=== PATIENT | female | born 1985 | race Caucasian/White ===

== ENCOUNTER 2016-03-28 14:47 | Emergency (ER) | payer OTHER ==
[2016-03-28 14:54] VITALS: BP 105/69; PULSE 60; TEMP 97.9; BMI 27.4
== END 2016-03-28 18:22 | disposition left against medical advice (07) ==
LOC: JER 14:47
DX: Z53.21 Procedure and treatment not carried out due to patient leaving prior to being seen by health care provider (principal)
CPT/HCPCS: 99281-25

== ENCOUNTER 2016-10-21 10:01 | Inpatient (IN) | payer OTHER ==
[2016-10-21] MEDS ORDERED: ELECTROLYTE-148 SOLN 500 ML IV ONE (11:00)
[2016-10-21] MEDS ORDERED: CITRIC ACID/SODIUM CITRATE 30 ML UNIT-DOSE CUP PO ONE (11:00)
[2016-10-21] MEDS ORDERED: ELECTROLYTE-148 SOLN 1,000 ML IV SCH ×2 (11:30→14:00)
[2016-10-21 11:50] LABS: BASOPHIL 0.1 % (0-2.0); EOSINOPHIL 0.6 % (0-4.5); MCH 29.4 pg (25.7-33.7); MCHC 33.7 g/dl (32.0-36.0); MEAN CELL VOLUME 87.3 fl (80-96); MEAN PLT VOLUME 9.6 fl (7.5-11.1); NEUTROPHILS 78.2 % (42.8-82.8); PLATELET COUNT 160 K/MM3 (134-434); RDW 14.4 % (11.6-15.6); WHITE BLOOD COUNT 8.5 K/mm3 (4.0-10.0)
[2016-10-21 11:53] VITALS: BMI 35.4
[2016-10-21 12:04] LABS: INR 1.04 (0.82-1.09); PROTHROMBIN TIME (PATIENT) 11.5 SEC (9.98-11.88)
[2016-10-21 12:07] LABS: ACTIVATED PTT 29.9 SECONDS (26.9-34.4)
[2016-10-21 12:25] LABS: ANION GAP 10 (8-16); CALCIUM 8.3 mg/dL (8.5-10.1); CO2 22 mmol/L (21-32); CREATININE 0.6 mg/dL (0.55-1.02); GLUCOSE,RANDOM 101 mg/dL (74-106)
[2016-10-21 13:39] LABS: HIV 1 & 2 AB NEGATIVE; HIV 1 AGp24 NEGATIVE
--- NOTE | 2016-10-21 14:04 | HP ---
Past Medical History - Admission Chief Complaint: Rupture of membrane History of Present Illness: 31 yo @ 38 weeks gestation, admitted due to rupture of membrane. She had 3 previous C-Sections. She's on Methadone. She admits to eating regular diet at 11 am. Decision made to have repeat 8hrs postprandial. History Source: Patient Limitations to Obtaining History: No Limitations - Past Medical History ...: 5 ...Para: 3 ...Term: 3 ...: 0 ...Spon : 1 ...Induced : 0 ...Multiple Gestation: 0 ...EDC by Abhi: 11/03/16 - Past Surgical History Past Surgical History: Yes: Hx Myomectomy: No Hx Transabdominal Cerclage: No - Smoking History Smoking history: Never smoked Have you smoked in the past 12 months: No Aproximately how many cigarettes per day: 2 - Alcohol/Substance Use Hx Alcohol Use: No History of Substance Use: reports: Heroin - Social History Usual Living Arrangement: Yes: With Spouse History of Recent Travel: No Home Medications - Allergies Allergies/Adverse Reactions: Allergies Allergy/AdvReac Type Severity Reaction Status Date / Time Penicillins Allergy Severe Difficulty Verified 10/21/16 13:56 Breathing - Home Medications Home Medications: Ambulatory Orders Methadone 170 mg PO DAILY 09/04/16 Vit/Iron Fumarate/FA [ Tablet] 1 tab PO DAILY #30 tab 09/04/16 Ferrous Sulfate 1 tab PO BID 10/21/16 Family Disease History - Family Disease History Family History: Unremarkable Review of Systems - Review of Systems Constitutional: reports: No Symptoms Eyes: reports: No Symptoms HENT: reports: No Symptoms Neck: reports: No Symptoms Cardiovascular: reports: No Symptoms Respiratory: reports: No Symptoms Gastrointestinal: reports: No Symptoms Genitourinary: reports: Other (Leakage of fluid) Breasts: reports: No Symptoms Reported Musculoskeletal: reports: No Symptoms Integumentary: reports: No Symptoms Neurological: reports: No Symptoms Endocrine: reports: No Symptoms Hematology/Lymphatic: reports: No Symptoms Psychiatric: reports: No Symptoms Pain Intensity: 2 Physical Exam - Maternity Vital Signs: Vital Signs Temperature 98.3 F 10/21/16 11:00 Pulse Rate 66 10/21/16 11:00 Respiratory Rate 20 10/21/16 11:00 Blood Pressure 137/75 10/21/16 11:00 O2 Sat by Pulse Oximetry (%) Constitutional: Yes: Well Nourished Eyes: Yes: Conjunctiva Clear HENT: Yes: Atraumatic Neck: Yes: Supple Cardiovascular: Yes: Regular Rate and Rhythm Lungs: Clear to auscultation - Abdominal Exam/OB Number of Fetuses: Single Presentation: Vertex Contractions: No Intensity: Unaware - Vaginal Exam/OB Effacement (%): 70 Amniotic Membrane Status: Leaking Nitrazine Test: Positive Amniotic Fluid: Yes: Clear Presentation: Vertex/Position Station: -2 - Physical Exam Integumentary: Yes: WNL ...Motor Strength: WNL Psychiatric: Yes: Alert, Oriented - Labs Lab Results: CBC, BMP 10/21/16 11:30 10/21/16 11:30 Problem List - Problems (1) SROM (spontaneous rupture of membranes) Code(s): KFO8748 - Assessment/Plan Spontaneous rupture of membrane IUP @ 38 weeks with previous Pre op for repeat Prep and shave Anesthesia to see patient
[2016-10-21] MEDS ORDERED: oxyCODONE HCL 5 MG TABLET PO PRN (22:43)
[2016-10-21] MEDS ORDERED: METHYLERGONOVINE MALEATE 0.2 MG/1 ML AMP IM PRN (22:43)
[2016-10-21] MEDS ORDERED: IBUPROFEN 800 MG/8 ML IJ IVPB PRN (22:43)
[2016-10-21] MEDS ORDERED: ONDANSETRON 4 MG/2 ML VIAL IVPB PRN (23:48)
[2016-10-22] MEDS ORDERED: ACETAMINOPHEN 1000 MG/100 ML VIAL (NON FORMULARY) IVPB ONE (01:14)
[2016-10-22] MEDS ORDERED: HYDROmorphone *PCA* 10MG/50ML DISP.SYRIN PCA SCH (01:15)
[2016-10-22 03:02] LABS: URINE MARIJUANA THC NEGATIVE ng/ml (CUTOFF=50)
[2016-10-22] MEDS ORDERED: METHADONE HCL 5 MG TABLET PO SCH (06:00)
--- NOTE | 2016-10-22 06:16 | PN ---
Post Progress Note Type of Delivery: Repeat C/S Vital Signs: Vital Signs Temperature 97.9 F 10/22/16 06:00 Pulse Rate 73 10/22/16 06:00 Respiratory Rate 17 10/22/16 06:00 Blood Pressure 120/71 10/22/16 06:00 O2 Sat by Pulse Oximetry (%) 100 10/22/16 00:45 Breast Exam: Yes: Soft Uterus: Yes: Fundus Firm Incision: Yes: Dressing dry and intact Abdomen/GI: Yes: Abdomen soft Lochia: Yes: Rubra Lochia, amount: Small Extremities: Yes: Calves non-tender Perineum: Yes: Intact Activity: Ambulating - Labs Labs: CBC WBC 8.5 K/mm3 (4.0-10.0) 10/21/16 11:30 RBC 3.76 M/mm3 (3.60-5.2) 10/21/16 11:30 Hgb 11.0 GM/dL (10.7-15.3) 10/21/16 11:30 Hct 32.8 % (32.4-45.2) 10/21/16 11:30 MCV 87.3 fl (80-96) 10/21/16 11:30 MCH 29.4 pg (25.7-33.7) 10/21/16 11:30 MCHC 33.7 g/dl (32.0-36.0) 10/21/16 11:30 RDW 14.4 % (11.6-15.6) 10/21/16 11:30 Plt Count 160 K/MM3 (134-434) 10/21/16 11:30 MPV 9.6 fl (7.5-11.1) 10/21/16 11:30 Neutrophils % 78.2 % (42.8-82.8) 10/21/16 11:30 Lymphocytes % 14.1 % (8-40) 10/21/16 11:30 Monocytes % 7.0 % (3.8-10.2) 10/21/16 11:30 Eosinophils % 0.6 % (0-4.5) 10/21/16 11:30 Basophils % 0.1 % (0-2.0) 10/21/16 11:30 Assessment/Plan contine care oob reg diet oain control check labs
[2016-10-22] MEDS ORDERED: METHADONE 160 MG, METHADONE 15 MG PO SCH (08:00)
[2016-10-22] MEDS ORDERED: METHADONE HCL 5 MG TABLET ONE (08:01)
[2016-10-22] MEDS ORDERED: METHADONE HCL 40 MG DISPERSABLE TABLET ONE (08:02)
[2016-10-22] MEDS ORDERED: METHADONE 160 MG, METHADONE 10 MG PO SCH (08:09)
[2016-10-22] MEDS: METHADONE 160 MG, METHADONE 10 MG PO SCH (08:15)
--- NOTE | 2016-10-22 08:15 | PN ---
Progress Note (short form) - Note Progress Note: Post op day#1.S/P c section under spinal anesthesia with duramorph uneventful.Patient stable and c/o pain score of 5-6/10 on Dilaudid JOURNEYMAN WELDER.Patient has been om Marijuana 170mg po od for last 5 years and is seeking for it.So after discussing with pharmacist JOURNEYMAN WELDER is DC and will put patient on Dilaudid and NSAID PRN and also she will get Marijuana.No any anesthesia related problem.If needed will f/u.
--- NOTE | 2016-10-22 08:18 | PN ---
Progress Note (short form) - Note Progress Note: Post op day#1.S/P c section under spinal anesthesia with duramorph uneventful.Patient stable and c/o pain score of 5-6/10 on Dilaudid GOLDBEATER.Patient has been om Methadone 170mg po od for last 5 years and is seeking for it.So after discussing with pharmacist GOLDBEATER is DC and will put patient on Dilaudid and NSAID PRN and also she will get Methadone.No any anesthesia related problem.If needed will f/u.
[2016-10-22 08:24] LABS: BASOPHIL 0.4 % (0-2.0); EOSINOPHIL 0.8 % (0-4.5); MCH 29.5 pg (25.7-33.7); MCHC 33.8 g/dl (32.0-36.0); MEAN CELL VOLUME 87.2 fl (80-96); MEAN PLT VOLUME 9.5 fl (7.5-11.1); NEUTROPHILS 73.1 % (42.8-82.8); PLATELET COUNT 147 K/MM3 (134-434); RDW 13.9 % (11.6-15.6); WHITE BLOOD COUNT 8.5 K/mm3 (4.0-10.0)
[2016-10-22] MEDS ORDERED: HYDROmorphone HCL CARPU-JECT 1 MG/1 ML DISP.SYRIN IVPB PRN (08:29)
[2016-10-22] MEDS ORDERED: IBUPROFEN 800 MG/8 ML IJ IVPB PRN (08:29)
[2016-10-22] MEDS: OXYTOCIN 20 UNITS in 0.9% NS 1,000 ML IV SCH ×2 (08:45)
[2016-10-22] MEDS: oxyCODONE HCL 5 MG TABLET PO PRN (16:38)
[2016-10-22] MEDS: SIMETHICONE 80 MG TAB.CHEW (FP) PO PRN (16:39)
[2016-10-22] MEDS: IBUPROFEN 600 MG TABLET (FP) PO PRN (16:39)
--- NOTE | 2016-10-22 17:11 | OP ---
DATE OF OPERATION: DATE OF DICTATION: 10/22/2016 HISTORY OF PRESENT ILLNESS: A 31-year-old female with 3 prior sections presents to the hospital with spontaneous rupture of membranes. POSTOPERATIVE DIAGNOSIS: A 31-year-old female with 3 prior sections presents to the hospital with spontaneous rupture of membranes. PROCEDURE: Repeat section. OPERATING SURGEON: Lilliana Dominguez MD VACUUM DRIER TENDER: TITO Lopez ANESTHESIA: Dr. Joe, spinal anesthesia. COMPLICATIONS: Multiple adhesions. ESTIMATED BLOOD LOSS: 600 mL DISPOSITION: To recovery room in stable, alert condition. DESCRIPTION OF PROCEDURE: Patient was consented prior to entering the operating suite. Patient put on the table in dorsal supine position and prepped and draped in the usual sterile fashion. A low Pfannenstiel incision was carried down to the previous. This was then carried down to the fascia. There was noted to be areas of adhesions identified. Once down to the muscle, the fascia was then from the underlying rectus tissue. The rectus abdominis muscle was noted to be adherent and then was entered sharply. The gravid uterus then identified after separation of the muscles. A transverse incision was made on the lower segment. The bladder flap had been created. Gain into the uterine cavity was then seen. The uterine incision was then . The 's head was then delivered atraumatically through the incision. The cord was then clamped and cut. The infant was then handed off to the waiting sas programmer remote. The placenta had been removed. The uterus was then closed in a single layer of locking Biosyn suture. Adequate hemostasis was identified. At this time, the right and left paracolic gutters were seen. There was no identified. The muscle was then approximated with the underlying peritoneum. The fascia was then closed in a running nonlocking fashion. Area of imbrication was performed. The skin flora were applied. The patient was sent to recovery room in stable, alert condition. LILLIANA DOMINGUEZ M.D. RYANNE/[id number]
[2016-10-22] MEDS ORDERED: BISACODYL 10 MG SUPP.RECT RC PRN (22:44)
[2016-10-23] MEDS: IBUPROFEN 600 MG TABLET (FP) PO PRN ×3 (01:05→22:18)
[2016-10-23] MEDS: oxyCODONE HCL 5 MG TABLET PO PRN ×3 (01:05→22:18)
[2016-10-23] MEDS: SIMETHICONE 80 MG TAB.CHEW (FP) PO PRN ×3 (01:05→22:18)
[2016-10-23] MEDS ORDERED: METHADONE HCL 5 MG TABLET ONE (06:19)
[2016-10-23] MEDS ORDERED: METHADONE HCL 40 MG DISPERSABLE TABLET ONE (06:20)
[2016-10-23] MEDS: METHADONE 160 MG, METHADONE 10 MG PO SCH (06:27)
--- NOTE | 2016-10-23 09:59 | PN ---
Post Progress Note - Subjective Subjective: c/o pain at op site scale #7 Post Day: 2 Type of Delivery: Repeat C/S Vital Signs: Vital Signs Temperature 98.0 F 10/23/16 06:35 Pulse Rate 71 10/23/16 06:35 Respiratory Rate 20 10/23/16 06:35 Blood Pressure 133/83 10/23/16 06:35 O2 Sat by Pulse Oximetry (%) 100 10/22/16 00:45 Breast Exam: Yes: Soft, Other (BF ). No: Engorged Uterus: Yes: Fundus Firm, Fundus below umbilicus, Non-tender Incision: Yes: Dressing dry and intact (to be changed ). No: Redness, Oozing Abdomen/GI: Yes: Abdomen soft, Tender, Passing flatus, Tolerating PO (diet ). No: Abdominal Distention Lochia: Yes: Rubra Lochia, amount: Moderate Extremities: Yes: Calves non-tender Perineum: Yes: Intact Activity: Ambulating - Labs Labs: CBC WBC 8.5 K/mm3 (4.0-10.0) 10/22/16 07:50 RBC 3.25 M/mm3 (3.60-5.2) L 10/22/16 07:50 Hgb 9.6 GM/dL (10.7-15.3) L D 10/22/16 07:50 Hct 28.4 % (32.4-45.2) L 10/22/16 07:50 MCV 87.2 fl (80-96) 10/22/16 07:50 MCH 29.5 pg (25.7-33.7) 10/22/16 07:50 MCHC 33.8 g/dl (32.0-36.0) 10/22/16 07:50 RDW 13.9 % (11.6-15.6) 10/22/16 07:50 Plt Count 147 K/MM3 (134-434) 10/22/16 07:50 MPV 9.5 fl (7.5-11.1) 10/22/16 07:50 Neutrophils % 73.1 % (42.8-82.8) 10/22/16 07:50 Lymphocytes % 16.9 % (8-40) 10/22/16 07:50 Monocytes % 8.8 % (3.8-10.2) 10/22/16 07:50 Eosinophils % 0.8 % (0-4.5) 10/22/16 07:50 Basophils % 0.4 % (0-2.0) D 10/22/16 07:50 Assessment/Plan anemia, , on po Metthadone 160 +10 mg daily Plan encourage ambulation, po fluids
[2016-10-24] MEDS ORDERED: METHADONE HCL 5 MG TABLET ONE (06:29)
[2016-10-24] MEDS ORDERED: METHADONE HCL 40 MG DISPERSABLE TABLET ONE (06:30)
[2016-10-24] MEDS: METHADONE 160 MG, METHADONE 10 MG PO SCH (06:32)
--- NOTE | 2016-10-24 08:19 | PN ---
Post Progress Note - Subjective Subjective: 31 yo Para 4 status post , seen and evaluated. Doing well. She c/o itching over the belly but there's no rash. Post Day: 3 Type of Delivery: Repeat C/S Vital Signs: Vital Signs Temperature 98.7 F 10/23/16 20:20 Pulse Rate 61 10/23/16 20:20 Respiratory Rate 20 10/23/16 20:20 Blood Pressure 129/75 10/23/16 20:20 O2 Sat by Pulse Oximetry (%) 100 10/22/16 00:45 Breast Exam: Yes: Soft Uterus: Yes: Fundus Firm Incision: Yes: Negra intact Abdomen/GI: Yes: Abdomen soft, Tolerating PO Lochia: Yes: Rubra Lochia, amount: Small Extremities: Yes: Edema (+1) Perineum: Yes: Intact Activity: Ambulating - Labs Labs: CBC WBC 8.5 K/mm3 (4.0-10.0) 10/22/16 07:50 RBC 3.25 M/mm3 (3.60-5.2) L 10/22/16 07:50 Hgb 9.6 GM/dL (10.7-15.3) L D 10/22/16 07:50 Hct 28.4 % (32.4-45.2) L 10/22/16 07:50 MCV 87.2 fl (80-96) 10/22/16 07:50 MCH 29.5 pg (25.7-33.7) 10/22/16 07:50 MCHC 33.8 g/dl (32.0-36.0) 10/22/16 07:50 RDW 13.9 % (11.6-15.6) 10/22/16 07:50 Plt Count 147 K/MM3 (134-434) 10/22/16 07:50 MPV 9.5 fl (7.5-11.1) 10/22/16 07:50 Neutrophils % 73.1 % (42.8-82.8) 10/22/16 07:50 Lymphocytes % 16.9 % (8-40) 10/22/16 07:50 Monocytes % 8.8 % (3.8-10.2) 10/22/16 07:50 Eosinophils % 0.8 % (0-4.5) 10/22/16 07:50 Basophils % 0.4 % (0-2.0) D 10/22/16 07:50 Problem List - Problems (1) SROM (spontaneous rupture of membranes) Code(s): TTO0936 - (2) Status post repeat low transverse section Code(s): Z98.891 - HISTORY OF UTERINE SCAR FROM PREVIOUS SURGERY Assessment/Plan Status post repeat Body itch Betamethasone cream Continue ambulation Consider D/C home in am
[2016-10-24 08:57] LABS: BASOPHIL 0.4 % (0-2.0); EOSINOPHIL 1.4 % (0-4.5); MCH 29.7 pg (25.7-33.7); MCHC 33.5 g/dl (32.0-36.0); MEAN CELL VOLUME 88.7 fl (80-96); MEAN PLT VOLUME 9.7 fl (7.5-11.1); NEUTROPHILS 70.4 % (42.8-82.8); PLATELET COUNT 205 K/MM3 (134-434); RDW 14.3 % (11.6-15.6); WHITE BLOOD COUNT 7.8 K/mm3 (4.0-10.0)
[2016-10-24] MEDS: ACETAMINOPHEN 325 MG TABLET (FP) PO PRN (12:35)
[2016-10-24] MEDS: oxyCODONE HCL 5 MG TABLET PO PRN ×2 (12:35→20:03)
[2016-10-24] MEDS: IBUPROFEN 600 MG TABLET (FP) PO PRN ×2 (12:35→20:04)
[2016-10-24] MEDS: SIMETHICONE 80 MG TAB.CHEW (FP) PO PRN ×2 (12:35→20:03)
[2016-10-24] MEDS: BETAMETHASONE DIP 0.05% TP LOTION 60 ML BOTTLE TP SCH ×2 (12:36→22:27)
--- NOTE | 2016-10-24 14:32 | PATH ---
Surgical Pathology Report Patient Name: ALVARO GODWIN Med. Rec. #: [id number] /Age/Gender: 1985 (Age: 31) / F Account: [id number] Location: [facility] OBS/HEAD OF VISUAL MERCHANDISING Taken: 10/21/2016 Received: 10/22/2016 Reported: 10/24/2016 Physicians: Sohan Dominguez M.D. Demetra Saucedo M.D. Specimen(s) Received PLACENTA Clinical History , 38.1 weeks previous c/section; SPAB x1, rheumatoid arthritis, possible uterine fibroid; history of heroin use-on methadone daily, grand multiparity; x3 12/13, 06/16, 05/17 Repeat c/section Final Diagnosis PLACENTA, DELIVERY: FOCALLY DISRUPTED THIRD TRIMESTER PLACENTA WITH MODERATE PREVILLOUS, PERIVILLOUS, AND PRECHORIONIC FIBRIN DEPOSITION, THREE VESSEL UMBILICAL CORD, AND PLACENTAL MEMBRANES WITH FOCAL AMNION HYPERPLASIA. Electronically Signed Ray Watt M.D. Gross Description The specimen is received fresh, labeled "placenta" and is a 564 gram, 18.0 x 16.5 x 2.5 cm. placenta with attached membranes and umbilical cord. The attached membranes are ruiz, translucent with focal opacities and insert marginally. The umbilical cord measures 26 cm in length and averages 0.9 cm in diameter. The cord inserts eccentrically, 4 cm to the nearest margin. No true knots or strictures are identified. Cut surface of the umbilical cord reveals 3 vessels. The surface is mojica-blue with fibrin deposition and appropriate caliber vessels. The maternal surface is red-brown with focal defects. Sectioning reveals red-brown, spongy parenchyma. No focal lesions are identified. Packer sections are submitted in three cassettes as follows: 1- membrane rolls and umbilical cord; 2-3- full thickness sections of placenta. 10/23/201610/23/2016
[2016-10-25] MEDS: IBUPROFEN 600 MG TABLET (FP) PO PRN ×2 (02:51→06:56)
[2016-10-25] MEDS: SIMETHICONE 80 MG TAB.CHEW (FP) PO PRN (02:51)
[2016-10-25] MEDS: oxyCODONE HCL 5 MG TABLET PO PRN ×2 (02:52→06:55)
[2016-10-25] MEDS ORDERED: METHADONE HCL 5 MG TABLET ONE (05:09)
[2016-10-25] MEDS ORDERED: METHADONE HCL 40 MG DISPERSABLE TABLET ONE (05:10)
[2016-10-25] MEDS: METHADONE 160 MG, METHADONE 10 MG PO SCH (05:12)
[2016-10-25] MEDS: ACETAMINOPHEN 325 MG TABLET (FP) PO PRN (06:56)
[2016-10-25] MEDS: BETAMETHASONE DIP 0.05% TP LOTION 60 ML BOTTLE TP SCH (10:12)
[2016-10-25 11:27] VITALS: BP 127/70; PULSE 66; TEMP 98.3
--- NOTE | 2016-10-25 12:43 | DS ---
Physical Exam-ACCOUNT MANAGER B2B Vital Signs: Vital Signs Temperature 98.3 F 10/25/16 10:00 Pulse Rate 66 10/25/16 10:00 Respiratory Rate 20 10/25/16 10:00 Blood Pressure 127/70 10/25/16 10:00 O2 Sat by Pulse Oximetry (%) 100 10/22/16 00:45 Constitutional: Yes: Well Nourished, No Distress, Calm Eyes: Yes: WNL, Conjunctiva Clear, EOM Intact HENT: Yes: WNL, Atraumatic, Normocephalic Neck: Yes: WNL, Supple, Trachea Midline Cardiovascular: Yes: WNL, Regular Rate and Rhythm Respiratory: Yes: WNL, Regular, CTA Bilaterally Gastrointestinal: Yes: WNL ...Rectal Exam: Yes: WNL Renal/: Yes: WNL ....Post : Yes: Uterus firm, Uterus non-tender, Slight lochia rubra Breast(s): Yes: WNL Musculoskeletal: Yes: WNL Extremities: Yes: WNL Integumentary: Yes: WNL Wound/Incision: Yes: Clean/Dry, Well Approximated, Sutures Intact Neurological: Yes: WNL, Alert, Oriented ...Motor Strength: WNL Psychiatric: Yes: WNL, Alert, Oriented Labs: CBC, BMP 10/24/16 08:00 10/21/16 11:30 Delivery - Delivery Section: Repeat, Low Flap Transverse Type of Anesthesia: Spinal Episiotomy/Laceration: None EBL (cc): 500 Delivery, Single - Stages of Labor Date of Delivery: 10/21/16 Time of Delivery: 23:07 Time Placenta Delivered: 23:08 Placenta: Yes: Expressed - Condition of Boat Pilot/Clinic Physician Present: Yes Name: Aislinn Thomas Infant Gender: Female Weight: 6 lb 13 oz Position: OA Total Hours ROM (Hrs/Mins): 15 hours 38 minutes - 1 Minute Total Score: 9 5 Minutes Total Score: 9 - Feeding Plan Initial Plan: Elected not to breastfeed exclusively throughout hospitalization Discharge Summary Reason For Visit: LABOR Current Active Problems SROM (spontaneous rupture of membranes) (Acute) Status post repeat low transverse section (Acute) Procedures: Principal: c/section - Instructions Diet, Activity, Other Instructions: return to clinic on friday10/29/16 for flora removal. call [facility] for appointment. [phone] - Home Medications Comprehensive Discharge Medication List: Ambulatory Orders Methadone 170 mg PO DAILY 09/04/16 Vit/Iron Fumarate/FA [ Tablet] 1 tab PO DAILY #30 tab 09/04/16 Ferrous Sulfate 1 tab PO BID 10/21/16 Ibuprofen [Motrin -] 600 mg PO QID #28 tablet 10/25/16 Vitamins (Sjr) - 1 tab PO DAILY #90 tablet 10/25/16
== END 2016-10-25 14:30 | disposition home or self-care (01) | DRG 540 ==
LOC: JDEL 10:01 → JLDR 11:00 → J3W 10-22 10:32
PROVIDERS: ADMIT Obstetrics & Gynecology; ATTEND Obstetrics & Gynecology
PROC: 10D00Z1 Extraction of Products of Conception, Low, Open Approach (ICD-10-PCS; principal; 2016-10-22)
DX: O34.211 Maternal care for low transverse scar from previous cesarean delivery (principal); O90.81 Anemia of the puerperium; O99.214 Obesity complicating childbirth; E66.8 Other obesity; Z68.35 Body mass index [BMI] 35.0-35.9, adult; Z3A.38 38 weeks gestation of pregnancy; Z37.0 Single live birth; Z88.0 Allergy status to penicillin
CPT/HCPCS: 36415; 80048; 80307; 85025; 85610; 85730; 86593; 86850; 86900; 86901; 87389; 88307-TC

== ENCOUNTER 2016-11-03 10:52 | Emergency (ER) | payer OTHER ==
[2016-11-03 10:58] VITALS: BP 136/94; PULSE 63; TEMP 98.5; BMI 32.4
--- NOTE | 2016-11-03 11:40 | PDOC ---
History of Present Illness - General Chief Complaint: Wound Stated Complaint: POST-OP COMPLICATIONS Time Seen by Provider: 11/03/16 11:20 History Source: Patient Exam Limitations: No Limitations - History of Present Illness Initial Comments: 11/03/16 11:48 Patient and came to ER for evaluation of opening to suture line. Status post 2 weeks ago, with staple removal 2 days ago. States while has been was performing wound care, cleaning with hydrogen peroxide and saline pushed on a firm area above suture line causing a dehiscence of the wound and a large amount of clear blood tinged fluid expelled. Patient states firmness resolved almost completely after this concerned about the opening of the wound. Ice fever, denies any foul smell, any purulent drainage, or pain at suture line. 11/03/16 12:09 11/03/16 12:10 Timing/Duration: unsure Severity: mild Associated Symptoms: denies: denies symptoms Past History - Travel Traveled outside of the country in the last 30 days: No Close contact w/someone who was outside of country & ill: No - Past Medical History Allergies/Adverse Reactions: Allergies Allergy/AdvReac Type Severity Reaction Status Date / Time Penicillins Allergy Severe Difficulty Verified 11/03/16 10:57 Breathing Home Medications: Ambulatory Orders Methadone 170 mg PO DAILY 09/04/16 Vit/Iron Fumarate/FA [ Tablet] 1 tab PO DAILY #30 tab 09/04/16 Ferrous Sulfate 1 tab PO BID 10/21/16 Ibuprofen [Motrin -] 600 mg PO QID #28 tablet 10/25/16 Vitamins (Sjr) - 1 tab PO DAILY #90 tablet 10/25/16 Asthma: No Cancer: No Cardiac Disorders: No Diabetes: No HTN: No Seizures: No Thyroid Disease: No - Psycho/Social/Smoking Cessation Hx Suicidal Ideation: No Smoking History: Current every day smoker Have you smoked in the past 12 months: No Number of Cigarettes Smoked Daily: 4 Information on smoking cessation initiated: No Hx Alcohol Use: No Drug/Substance Use Hx: No Hx Substance Use Treatment: No Review of Systems - Review of Systems Able to Perform ROS?: Yes Is the patient limited Frisian proficient: Yes Constitutional: Yes: See HPI. No: Symptoms Reported, Chills, Fever, Malaise HEENTM: No: Symptoms Reported Respiratory: No: Symptoms reported Integumentary: Yes: Symptoms Reported, See HPI. No: Erythema Neurological: No: Symptoms reported All Other Systems: Reviewed and Negative *Physical Exam - Vital Signs Last Vital Signs Temp Pulse Resp BP Pulse Ox 98.5 F 63 18 136/94 98 11/03/16 10:54 11/03/16 10:54 11/03/16 10:54 11/03/16 10:54 11/03/16 10:54 - Physical Exam General Appearance: Yes: Nourished, Appropriately Dressed. No: Apparent Distress HEENT: positive: FABY, Normal ENT Inspection, TMs Normal, Pharynx Normal Neck: positive: Supple. negative: Tender Respiratory/Chest: positive: Lungs Clear, Respiratory Distress Musculoskeletal: negative: Normal Inspection, CVA Tenderness Extremity: positive: Normal Capillary Refill Integumentary: positive: Normal Color, Dry, Warm, Other ( suture line approximating well except for right lateral edge where it has dehisced approximately 3 cm. Has serosanguineous drainage noted from wound site, but no evidence of purulent drainage, or wound infection. Is nontender, and tissue appears to be granulating well.). negative: Erythema, Swelling Neurologic: positive: fountain pen turner II-XII NML intact, Fully Oriented, Alert, Normal Mood/ Affect, Normal Response, Motor Strength 5/5 Medical Decision Making - Medical Decision Making 11/03/[address] Valladares 10 who recommended simple wound care with no antibiotics as there is no indication of infection at this time. *DC/Admit/Observation/Transfer Diagnosis at time of Disposition: Wound dehiscence - Discharge Dispostion Disposition: HOME Condition at time of disposition: Stable Admit: No - Patient Instructions Printed Discharge Instructions: DI for Wound Dehiscence Additional Instructions: Rest, keep area elevated. Avoid strenuous activity or exercise until wound is healed Use hot soaks to area to bring more blood to the surface and encourage drainage May change dressings as needed to keep clean - Allow water from shower to wash area thoroughly for 2-3 minutes, and pat dry upon exit of shower and replace dressing. Change his dressing daily until the wound is completely healed. May use Tylenol or Motrin for mild pain relief Continue all medications as prescribed Followup with private physician in 2-3 days for wound check Return to emergency Department for worsening swelling, pain, redness, fevers as needed - Post Discharge Activity Work/School Note: Back to Work
== END 2016-11-03 12:28 | disposition home or self-care (01) ==
LOC: JERFT 10:52
DX: O90.0 Disruption of cesarean delivery wound (principal)
CPT/HCPCS: 99281-25

== ENCOUNTER 2016-11-11 12:33 | Emergency (ER) | payer OTHER ==
[2016-11-11 12:57] VITALS: TEMP 98; BMI 32.4
--- NOTE | 2016-11-11 13:07 | PDOC ---
Attending Attestation - HPI HPI: 11/11/16 13:41 Patient is a 31 yo female, , who presents to the ED with pain to the C section incision site. Patient is s/p C section on 10/21/2016 and now notes that the pain is sharp and localized to the C section site. Patient states that she noticed clear purulent discharge at the incision site after getting flora removed from the C section. She states that the discharge has resolved. As per he notes that he has been cleaning the wound with hydrogen peroxide. Patient now reports right flank pain. She reports hx of kidney infection after her 3rd C section. She also reports pain at the lower abdomen. - Medical Decision Making 11/11/16 13:41 Documentation prepared by ESPINOZA Garcia, acting as medical resident for Luisa Zhu MD. <Karina Og - Last Filed: 11/11/16 13:41> - Resident Resident Name: Ximena Gotti - ED Attending Attestation I have performed the following: I have examined & evaluated the patient, The case was reviewed & discussed with the resident, I agree w/resident's findings & plan, Exceptions are as noted - Physicial Exam PE: GENERAL: Awake, alert, and fully oriented, in no acute distress HEAD: No signs of trauma EYES: PERRLA, EOMI, sclera anicteric, conjunctiva clear ENT: Auricles normal inspection, hearing grossly normal, nares patent, oropharynx clear without exudates. Moist mucosa NECK: Normal ROM, supple, no lymphadenopathy, JVD, or masses LUNGS: Breath sounds equal, clear to auscultation bilaterally. No wheezes, and no crackles HEART: Regular rate and rhythm, normal S1 and S2, no murmurs, rubs or gallops ABDOMEN: Soft, mild B/L side tenderness, normoactive bowel sounds. No guarding , no rebound. No masses. wound with small area wound dehiscence, no active drainage, no erythema, no induration. EXTREMITIES: Normal range of motion, no edema. No clubbing or cyanosis. No cords, erythema, or tenderness NEUROLOGICAL: Cranial nerves II through XII grossly intact. Normal speech, normal gait SKIN: Warm, Dry, normal turgor, no rashes. - Medical Decision Making 31 yo F s/p c-spine with slight area of wound dehiscence to R portion of c- section wound. No active drainage. No signs of infection. History of prior UTIs. Will obtain UA, and if negative, will pursue abdominal workup. <Luisa Zhu - Last Filed: 11/11/16 13:56>
--- NOTE | 2016-11-11 14:05 | PDOC ---
History of Present Illness - General Chief Complaint: Wound Infection Stated Complaint: POST OP COMPLICATIONS Time Seen by Provider: 11/11/16 13:05 History Source: Patient - History of Present Illness Initial Comments: 11/11/16 14:04 CC: Wound "Infection" 11/11/16 14:05 Patient is a 31 y.o. female with h/o a recent C/S (10/21) with staple removal ( 10/29) who presents to our ED c/o "infection" of her wound including discharge two days previous and pain. Patient c/o flank pain, no dysuria, hematuria. Patient also notes during her previous C/S she had a "kidney infection" for which she was hospitalized. As per EMR patient was evaluated in [facility] on 11/03 for similar complaints at which time wound consult noted dehiscience but did not recommend antibiotic therapy. Past History - Past Medical History Allergies/Adverse Reactions: Allergies Allergy/AdvReac Type Severity Reaction Status Date / Time Penicillins Allergy Severe Difficulty Verified 11/11/16 12:52 Breathing Home Medications: Ambulatory Orders Methadone [Dolophine -] 170 mg PO DAILY 11/11/16 Asthma: No Cancer: No Cardiac Disorders: No Diabetes: No HTN: No Seizures: No Thyroid Disease: No Other medical history: denies - Reproductive History Is Patient Now?: No - Immunization History Immunization Up to Date: Yes - Psycho/Social/Smoking Cessation Hx Suicidal Ideation: No Smoking History: Current every day smoker Have you smoked in the past 12 months: No Number of Cigarettes Smoked Daily: 5 Information on smoking cessation initiated: No Hx Alcohol Use: No Drug/Substance Use Hx: No Hx Substance Use Treatment: No Review of Systems - Review of Systems Constitutional: No: Chills, Fever HEENTM: No: Blurred Vision, Throat Pain Respiratory: No: Shortness of Breath Cardiac (ROS): No: Chest Pain, Irregular Heart Rate, Lightheadedness, Palpitations ABD/GI: No: Constipated, Diarrhea : Yes: Dysuria. No: Hematuria Integumentary: Yes: Other (Midline abdominal C/S scar - patient c/o resolved discharge) Psychiatric: No: Anxiety, Depression All Other Systems: Reviewed and Negative *Physical Exam - Vital Signs Last Vital Signs Temp Pulse Resp BP Pulse Ox 98.0 F 51 L 18 119/99 98 11/11/16 12:52 11/11/16 12:52 11/11/16 12:52 11/11/16 12:52 11/11/16 12:52 - Physical Exam General Appearance: Yes: Nourished, Obese Neck: positive: Trachea midline, Supple Respiratory/Chest: positive: Lungs Clear, Normal Breath Sounds Cardiovascular: positive: Regular Rhythm, Regular Rate, S1, S2 Gastrointestinal/Abdominal: positive: Soft Musculoskeletal: positive: CVA Tenderness (R) Extremity: positive: Normal Capillary Refill Integumentary: positive: Dry, Warm, Other (Midline abdominal scar with no observable erythema, dehiscence, discharge.) Neurologic: positive: Fully Oriented, Alert ED Treatment Course - LABORATORY CBC & Chemistry Diagram: 11/11/16 14:54 11/11/16 14:54 Medical Decision Making - Medical Decision Making 11/11/16 15:00 Patient is a 31 y.o. female who presents c/o of pain and previous discharge from her C/S wound (C/S on 10/21, staple removal on 10/29) as well as L sided flank pain. As UA was negative for infection, plan for further work-up of pain. PLAN 1. CBC, CMP 2. Abdominal CT with contrast 11/11/16 18:26 Patient's CBC negative for leukocytosis. Patient afebrile and hemodynamically stable during course of admission. Decision was made to discharge as per Dr. Vannesa Montenegro while CT results were pending. Patient to be called @home with CT results. Patient given specific instruction to return to ED should she experience shortness of breath, chest pain, severe abdominal discomfort or notice any discharge, foul odor or blood from her wound. *DC/Admit/Observation/Transfer Diagnosis at time of Disposition: Wound pain - Discharge Dispostion Disposition: HOME Condition at time of disposition: Good Admit: No - Patient Instructions Additional Instructions: You were evaluated today in the Emergency Department for wound pain. Your labs showed no sign of blood infection, no urinary tract infection and no skin infection. Please return to the Emergency Department should you have any discharge, swelling, severe pain, chest pain or shortness of breath
[2016-11-11 14:09] LABS: URINE APPEARANCE CLEAR; URINE BILIRUBIN NEGATIVE (NEGATIVE); URINE BLOOD NEGATIVE (NEGATIVE); URINE COLOR YELLOW; URINE GLUCOSE (UA) NEGATIVE (NEGATIVE); URINE KETONE NEGATIVE (NEGATIVE); URINE LEUK ESTERASE TRACE (NEGATIVE); URINE NITRITE NEGATIVE (NEGATIVE); URINE PROTEIN NEGATIVE (NEGATIVE); URINE UROBILINOGEN NEGATIVE mg/dL (0.2-1.0)
[2016-11-11 14:24] LABS: URINE MUCUS FEW; URINE RBC 2 /hpf (0-3); URINE WBC 2 /hpf (3-5)
[2016-11-11 15:02] LABS: MCH 27.9 pg (25.7-33.7); MCHC 32.3 g/dl (32.0-36.0); MEAN CELL VOLUME 86.4 fl (80-96); PLATELET COUNT 238 K/MM3 (134-434); RDW 14.4 % (11.6-15.6); WHITE BLOOD COUNT 7.4 K/mm3 (4.0-10.0)
[2016-11-11] MEDS ORDERED: SODIUM CHLORIDE 0.9% 1000 ML INFUS.BAG IV ONE (15:07)
[2016-11-11 15:26] LABS: ALBUMIN 3.2 g/dl (3.4-5.0); ALK PHOS 88 U/L (45-117); ANION GAP 5 (8-16); BILIRUBIN,TOTAL 0.2 mg/dL (0.2-1.0); CO2 31 mmol/L (21-32); CREATININE 0.7 mg/dL (0.55-1.02); GLUCOSE,RANDOM 78 mg/dL (74-106); SGPT/ALT 31 U/L (12-78); TOT PROT 6.6 g/dl (6.4-8.2)
[2016-11-11 15:29] LABS: SGOT/AST 21 U/L (15-37)
[2016-11-11 18:34] VITALS: BP 126/74; PULSE 60
--- NOTE | 2016-11-13 10:08 | PDOC ---
Patient Follow-up (Call Back) - Post ED Follow - Up Condition at time of discharge: Good Disposition at time of original discharge: HOME Reason for Call Back: Abnwl. Microbiology (Coats-sensitive ecoli on ucx Pt not treated Spoke to pt, c/o lower back pain w/ urination, otherwise no flank pain , n/v/f/c Of note, CT done in ED was normal Rx for macrobid 100mg BID x 7 days sent to pharmacy on record)
== END 2016-11-11 18:34 | disposition home or self-care (01) ==
LOC: JER 12:33
DX: O90.89 Other complications of the puerperium, not elsewhere classified (principal); G89.18 Other acute postprocedural pain
CPT/HCPCS: 36415; 74177-TC; 80053; 81003; 81015; 84703; 85027; 87086; 87186; 99284-25

== ENCOUNTER 2020-09-09 22:11 | Emergency (ER) | payer OTHER ==
[2020-09-09 22:41] VITALS: BP 132/81; PULSE 95; TEMP 98.2; BMI 35.7
[2020-09-10 00:51] LABS: BASO % 0.4 % (0-2.0); HEMATOCRIT 28.7 % (32.4-45.2); HEMOGLOBIN 9.4 GM/dL (10.7-15.3); LYMPH % 9.8 % (8-40); MCH 29.7 pg (25.7-33.7); MCHC 32.9 g/dl (32.0-36.0); MEAN CELL VOLUME 90.5 fl (80-96); MEAN PLT VOLUME 8.6 fl (7.5-11.1); MONO % 10.6 % (3.8-10.2); NEUT % 77.2 % (42.8-82.8); PLATELET COUNT 263 10^3/uL (134-434); RBC 3.18 M/mm3 (3.60-5.2); RDW 14.2 % (11.6-15.6); WHITE BLOOD COUNT 12.8 K/mm3 (4.0-10.0)
[2020-09-10 01:05] LABS: CALCIUM 8.5 mg/dL (8.5-10.1)
[2020-09-10 01:06] LABS: ALBUMIN 3.4 g/dl (3.4-5.0); BLOOD UREA NITROGEN 11.8 mg/dL (7-18)
[2020-09-10 01:09] LABS: CREATININE 0.6 mg/dL (0.55-1.3)
[2020-09-10 01:11] LABS: BILIRUBIN,TOTAL 0.3 mg/dL (0.2-1); TOT PROT 6.8 g/dl (6.4-8.2)
== END 2020-09-10 04:21 | disposition home or self-care (01) ==
LOC: JER 22:11
DX: Z98.890 Other specified postprocedural states (principal)
CPT/HCPCS: 36415; 74177-TC; 80053; 84703; 85025; 99285-25; Q9967

== ENCOUNTER 2022-10-02 20:08 | Emergency (ER) | payer OTHER ==
[2022-10-02 20:20] VITALS: BP 135/76; PULSE 61; RESP 18; TEMP 98.3; BMI 21.1
[2022-10-02] MEDS ORDERED: IBUPROFEN 400 MG TABLET (FP) PO ONE ×2 (22:48→22:55)
== END 2022-10-02 23:22 | disposition home or self-care (01) ==
LOC: JER 20:08
DX: K08.89 Other specified disorders of teeth and supporting structures (principal)
CPT/HCPCS: 99283-25

== ENCOUNTER 2023-07-04 12:17 | Emergency (ER) | payer OTHER ==
[2023-07-04 12:34] VITALS: RESP 19; BMI 26.5
[2023-07-04] MEDS ORDERED: ACETAMINOPHEN INJECTION 100 ML IVPB ONE (14:12)
[2023-07-04 14:42] LABS: BASO % 0.8 % (0-2.0); EOS % 0.7 % (0-4.5); HEMATOCRIT 37.3 % (32.4-45.2); HEMOGLOBIN 11.9 GM/dL (10.7-15.3); LYMPH % 14.6 % (8-40); MCH 26.1 pg (25.7-33.7); MCHC 31.9 g/dl (32.0-36.0); MEAN CELL VOLUME 81.8 fl (80-96); MEAN PLT VOLUME 8.9 fl (7.5-11.1); MONO % 6.4 % (3.8-10.2); NEUT % 77.5 % (42.8-82.8); PLATELET COUNT 251 10^3/uL (134-434); RBC 4.57 M/mm3 (3.60-5.2); RDW 20.3 % (11.6-15.6); WHITE BLOOD COUNT 9.3 K/mm3 (4.0-10.0)
[2023-07-04 14:44] LABS: INR 1.06 (0.83-1.09)
[2023-07-04 14:46] LABS: ACTIVATED PTT 28.6 SECONDS (25.2-36.5)
[2023-07-04 14:49] LABS: POTASSIUM 5.9 mmol/L (3.5-5.1)
[2023-07-04 14:51] LABS: ALBUMIN 3.5 g/dl (3.4-5.0); CALCIUM 8.9 mg/dL (8.5-10.1)
[2023-07-04 14:55] LABS: CREATININE 0.6 mg/dL (0.55-1.3)
[2023-07-04 14:56] LABS: BILIRUBIN,TOTAL 0.3 mg/dL (0.2-1); TOT PROT 7.4 g/dl (6.4-8.2)
[2023-07-04] MEDS: ACETAMINOPHEN 1000 MG/100 ML BAG IVPB ONE (15:02)
[2023-07-04 17:57] VITALS: BP 155/92; PULSE 104; TEMP 98.7
== END 2023-07-04 18:49 | disposition home or self-care (01) ==
LOC: JER 12:17
PROC: 3E030NZ Introduction of Analgesics, Hypnotics, Sedatives into Peripheral Vein, Open Approach (ICD-10-PCS; principal; 2023-07-04)
DX: O20.0 Threatened abortion (principal); Z3A.00 Weeks of gestation of pregnancy not specified
CPT/HCPCS: 36415; 76817-TC; 80053; 84702; 85025; 85610; 85730; 86850; 86900; 86901; 99284-25; J0131